=== PATIENT | male | born 1980 | race Caucasian/White ===

== ENCOUNTER 2023-01-16 16:03 | Outpatient (CLI) | payer OTHER ==
--- NOTE | 2023-01-16 21:39 | MRI Report ---
PROCEDURE: KNEE WO - RT INDICATIONS: RIGHT KNEE PAIN TECHNIQUE: Noncontrast sagittal PD fast spin echo and T2 fast spin echo with fat saturation, sagittal 3-D spoile d GE with fat saturation; coronal T1 spin echo and PD fast spin echo with fat saturation, and axial P D fast spin echo with fat saturation through the knee. COMPARISON: None. FINDINGS: Image quality: Excellent. Anterior cruciate ligament: Intact. Posterior cruciate ligament: Intact. Medial collateral ligament: Intact. Lateral collateral ligament: Intact. Medial meniscus: Intact. Lateral meniscus: Intermediate signal intensity in the body of the lateral meniscus approaches the a nd fibula tibial articular surface with possible focal communication. No meniscal extrusion. Medial and lateral tendons: The semimembranosus tendon insertions appear intact. Visualized portion s of the pes anserinus tendons appear normal. The popliteus tendon appears intact. Iliotibial band appears normal. Anterior structures: The patellar tendon and the distal quadriceps tendon appear intact. Suprapatell ar and infrapatellar enthesophytes are present. No patellar subluxation. No femoral trochlear dyspla rashaad or ventral trochlear prominence. No edema in the infrapatellar fat pad. Bones: No acute trabecular bone injury or fracture. Medial femorotibial cartilage: Partial-thickness cartilage irregularity is seen in the anterior and posterior weightbearing portion of the medial femoral condyle Lateral femorotibial cartilage: High-grade and full thickness cartilage loss is seen at the posterio r to far posterior portion of the lateral femoral condyle with subchondral osteophyte formation. Smal l marginal osteophytes are also present. Patellofemoral cartilage: Cartilage irregularity and deep cartilage fissuring are seen at the median ridge of the patella with subchondral cystic changes and edema extending partially into the lateral facet. There is high-grade partial thickness cartilage irregularity at the trochlear groove and adjac ent portions of the medial and lateral femoral trochlea. Soft tissues: There is a small joint effusion. There is a small medial popliteal cyst. The musculat ure surrounding the knee is normal in bulk. IMPRESSION: 1.Tricompartmental osteoarthrosis including areas of full-thickness and high-grade cartilage loss in the lateral femoral condyle with subchondral osteophyte formation. There is deep cartilage fissuring and high-grade partial-thickness focal irregularity in the patellofemoral compartment with subchondra l edema. 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 Tricompartmental marginal osteophytes are present. 2.Intermediate signal intensity in the body of the lateral meniscus approaching and possibly communic ating with the tibial articular surface may represent intrasubstance degeneration or a small horizont al oblique tear. 3.Cruciate and collateral ligaments are intact. No acute trabecular bone injury. 4.Small joint effusion. Small medial popliteal cyst. Reviewed by: Anoop Reynolds MD on 01/16/2023 9:37 PM PDT Approved by: Anoop Reynolds MD on 01/16/2023 9:37 PM PDT Station ID: [id number]
== END 2023-01-16 16:04 | disposition home or self-care (01) ==
LOC: DI 16:03
DX: M17.11 Unilateral primary osteoarthritis, right knee (principal); M25.461 Effusion, right knee; M94.261 Chondromalacia, right knee; M71.21 Synovial cyst of popliteal space [Baker], right knee; R93.6 Abnormal findings on diagnostic imaging of limbs